=== PATIENT | male | born 1935 | race Caucasian/White ===

== ENCOUNTER 2020-09-16 18:00 | Emergency (ER) | payer MEDICARE | END 2020-09-16 21:28 | disposition home or self-care (01) | LOC: ER1 18:00 | DX: S00.03XA Contusion of scalp, initial encounter (principal); S70.02XA Contusion of left hip, initial encounter; M54.2 Cervicalgia; E11.9 Type 2 diabetes mellitus without complications; Z95.1 Presence of aortocoronary bypass graft; W11.XXXA Fall on and from ladder, initial encounter; Y92.009 Unspecified place in unspecified non-institutional (private) residence as the place of occurrence of the external cause | CPT/HCPCS: 70450; 71045; 72125; 73522; 99284 ==

== ENCOUNTER 2021-11-26 12:43 | Emergency (ER) | payer MEDICARE ==
[2021-11-26] MEDS ORDERED: CORTISPORIN OTI10 ML EARRT (14:53)
== END 2021-11-26 15:10 | disposition home or self-care (01) ==
LOC: ER1 12:43
DX: H60.91 Unspecified otitis externa, right ear (principal); I51.9 Heart disease, unspecified; E11.9 Type 2 diabetes mellitus without complications
CPT/HCPCS: 99282

== ENCOUNTER 2021-12-06 08:55 | Inpatient (IN) | payer MEDICARE, MEDICAID ==
[~2021-12-06] VITALS: Ht 182.9 cm; Wt 68.1 kg
[~2021-12-06 08:55] MED LIST: CORTISPORIN OTI10 ML EARRT
[2021-12-06 09:39] LABS: HEMOGLOBIN 13.6 gm/dl (14.0-17.5); RED BLOOD COUNT 4.37 M/UL (4.20-5.50); WHITE BLOOD COUNT 8.6 K/UL (4.5-11.0)
[2021-12-06 10:06] LABS: BUN/CREATININE RATIO 12 (0-10)
[2021-12-06] MEDS ORDERED: MYCOSTATIN100000 UTS PO (12:18)
[2021-12-06] MEDS ORDERED: VITAMIN D325 MC6 PO (12:18)
[2021-12-06] MEDS ORDERED: FLOMAX0.4 MG PO (12:19)
[2021-12-06] MEDS ORDERED: ASPIRIN EC325 MG PO (12:19)
[2021-12-06] MEDS ORDERED: NEURONTIN300 MG PO (12:19)
[2021-12-06] MEDS ORDERED: GLUCOPHAGE 500500 MG PO (12:20)
[2021-12-06] MEDS ORDERED: SYNTHROID100 MCG PO (12:20)
[2021-12-06] MEDS ORDERED: ZOCOR40 MG PO (12:20)
[2021-12-06] MEDS ORDERED: ZESTRIL10 MG PO (12:21)
[2021-12-07 03:18] LABS: HEMOGLOBIN 13.7 gm/dl (14.0-17.5); RED BLOOD COUNT 4.4 M/UL (4.20-5.50); WHITE BLOOD COUNT 10.2 K/UL (4.5-11.0)
[2021-12-08 03:10] LABS: HEMOGLOBIN 12.3 gm/dl (14.0-17.5)
[2021-12-08 03:12] LABS: RED BLOOD COUNT 3.92 M/UL (4.20-5.50); WHITE BLOOD COUNT 7.6 K/UL (4.5-11.0)
[2021-12-09 02:50] LABS: HEMOGLOBIN 13.3 gm/dl (14.0-17.5); RED BLOOD COUNT 4.27 M/UL (4.20-5.50)
[2021-12-09] MEDS ORDERED: LEVOFLOXACIN500 MG PO (09:30)
[2021-12-09] MEDS ORDERED: DEXAMETHASONE SO5 ML EARRT (09:30)
[2021-12-09] MEDS ORDERED: CILOXAN 0.3% O2.5 ML EARRT (09:30)
[2021-12-09] MEDS ORDERED: CIPROFLOX-DEXA7.5 ML EARRT (09:35)
== END 2021-12-09 12:00 | disposition home or self-care (01) | DRG 682 ==
LOC: ER1 08:55 → CDU 10:45 → M/S 10:45
PROVIDERS: Physician Assistant; ADMIT Internal Medicine
PROC: B24BZZZ Ultrasonography of Heart with Aorta (ICD-10-PCS; principal; 2021-12-07)
DX: N17.9 Acute kidney failure, unspecified (principal); G93.41 Metabolic encephalopathy; Z20.822 Contact with and (suspected) exposure to COVID-19; R47.01 Aphasia; E87.2 Acidosis; E86.1 Hypovolemia; R47.81 Slurred speech; I35.2 Nonrheumatic aortic (valve) stenosis with insufficiency; H66.91 Otitis media, unspecified, right ear; E87.6 Hypokalemia; E11.9 Type 2 diabetes mellitus without complications; R26.81 Unsteadiness on feet; I10 Essential (primary) hypertension; E78.5 Hyperlipidemia, unspecified; W18.39XA Other fall on same level, initial encounter; E03.9 Hypothyroidism, unspecified; E78.00 Pure hypercholesterolemia, unspecified; N40.0 Benign prostatic hyperplasia without lower urinary tract symptoms; I25.10 Atherosclerotic heart disease of native coronary artery without angina pectoris; Y92.009 Unspecified place in unspecified non-institutional (private) residence as the place of occurrence of the external cause; Z95.1 Presence of aortocoronary bypass graft; Z79.01 Long term (current) use of anticoagulants; Z79.82 Long term (current) use of aspirin; Y93.89 Activity, other specified; Y92.091 Bathroom in other non-institutional residence as the place of occurrence of the external cause; Z83.3 Family history of diabetes mellitus; Z82.49 Family history of ischemic heart disease and other diseases of the circulatory system
CPT/HCPCS: ECHO; 36415; 70450; 70551; 71045; 80048; 80053; 81001; 82550; 82553; 82962; 83605; 83735; 84484; 85025; 87040; 87086; 92507; 92526; 92610; 93306; 96374; 97110; 97116; 97116-GP-CQ; 97161; 97166; 97530-GP-CQ; 99285; J0696; J1956; J7030; U0002

== ENCOUNTER 2021-12-20 06:03 | Observation (INO) | payer MEDICARE ==
[~2021-12-20] VITALS: Ht 182.9 cm; Wt 63.0 kg
[~2021-12-20 06:03] MED LIST changes: +ASPIRIN EC325 MG PO; +CILOXAN 0.3% O2.5 ML EARRT; +CIPROFLOX-DEXA7.5 ML EARRT; +DEXAMETHASONE SO5 ML EARRT; +FLOMAX0.4 MG PO; +GLUCOPHAGE 500500 MG PO; +LEVOFLOXACIN500 MG PO; +MYCOSTATIN100000 UTS PO; +NEURONTIN300 MG PO; +SYNTHROID100 MCG PO; +VITAMIN D325 MC6 PO; +ZESTRIL10 MG PO; +ZOCOR40 MG PO
[2021-12-20 10:27] LABS: HEMOGLOBIN 12.8 gm/dl (14.0-17.5); RED BLOOD COUNT 4.09 M/UL (4.20-5.50); WHITE BLOOD COUNT 9.2 K/UL (4.5-11.0)
--- NOTE | 2021-12-20 19:31 | NUR ---
PT ARRIVED TO FLOOR UNCOMFORTABLE STATES HIS KIDNEYS ARE LEAKING. HE HAD A CONDOM CATHETER ON. I BLADDER SCANNED WITH THE READING OF 999. DR MUHAMMAD NOTIFIED 18 FR CATHETER INSERTED WITH 1750 OUT IMMEDIATELY. PT STATED IMMEDIATE RELIEF.
[2021-12-21 06:23] LABS: HEMOGLOBIN 11.5 gm/dl (14.0-17.5); WHITE BLOOD COUNT 7.5 K/UL (4.5-11.0)
[2021-12-21 06:55] LABS: RED BLOOD COUNT 3.67 M/UL (4.20-5.50)
[2021-12-21] MEDS ORDERED: ASPIRIN EC81 MG PO (14:27)
--- NOTE | 2021-12-21 15:34 | NUR ---
REPORT CALLED TO [facility] WITH [facility]. FAMILY MADE AWARE OF ZIEGLER CATHETER IN PLACE AND EDUCATED ON HOW TO EMPTY DRAINAGE BAG.
== END 2021-12-21 15:31 | disposition home or self-care (01) ==
LOC: ER1 06:03 → CDU 13:30 → M/S 13:30
PROVIDERS: Emergency Medicine; Physician Assistant; ADMIT Internal Medicine Infectious Disease
DX: N40.1 Benign prostatic hyperplasia with lower urinary tract symptoms (principal); R33.8 Other retention of urine; Z20.822 Contact with and (suspected) exposure to COVID-19; I25.10 Atherosclerotic heart disease of native coronary artery without angina pectoris; N17.9 Acute kidney failure, unspecified; I35.1 Nonrheumatic aortic (valve) insufficiency; I12.9 Hypertensive chronic kidney disease with stage 1 through stage 4 chronic kidney disease, or unspecified chronic kidney disease; E11.22 Type 2 diabetes mellitus with diabetic chronic kidney disease; N18.30 Chronic kidney disease, stage 3 unspecified; E03.9 Hypothyroidism, unspecified; E78.5 Hyperlipidemia, unspecified; Z79.82 Long term (current) use of aspirin; Z79.84 Long term (current) use of oral hypoglycemic drugs; Z79.890 Hormone replacement therapy; Z79.899 Other long term (current) drug therapy; Z87.891 Personal history of nicotine dependence; Z95.1 Presence of aortocoronary bypass graft
CPT/HCPCS: 36415; 80048; 80053; 81001; 82140; 82962; 85025; 97161; 97166; 99285; G0378; U0002

== ENCOUNTER 2022-01-19 20:54 | Emergency (ER) | payer MEDICARE ==
[~2022-01-19 20:54] MED LIST changes: +ASPIRIN EC81 MG PO
== END 2022-01-19 22:30 | disposition home or self-care (01) ==
LOC: ER1 20:54
DX: T83.018A Breakdown (mechanical) of other urinary catheter, initial encounter (principal)
CPT/HCPCS: 96372; 99283; J0696